=== PATIENT | male | born 1960 | race Caucasian/White ===

== ENCOUNTER 2021-06-21 14:30 | Outpatient (CLI) | payer OTHER ==
[~2021-06-21 14:30] MED LIST: Iopamidol 370 76% 100 ML VIAL ONE
== END 2021-06-21 14:31 | disposition home or self-care (01) ==
LOC: BICCT 14:30
PROVIDERS: ATTEND Internal Medicine Cardiovascular Disease
DX: I73.9 Peripheral vascular disease, unspecified (principal); I70.8 Atherosclerosis of other arteries
CPT/HCPCS: 75635; Q9967